=== PATIENT | male | born 1980 | race Caucasian/White ===

== ENCOUNTER → 2016-09-15 | Outpatient (CLI) | payer OTHER ==
[~2016-09-15] MED LIST: "\\\"PREP SPRAY\\\"-TIN4 OZ"; CIPRO500 MG PO; CORTEF10 MG PO; DILANTIN100 MG PO; GLUCOPHAGE XR500 M1 PO; GLUCOPHAGE500 MG PO; LEVEMIR FL100 UNIT/1 SUB-Q; NOVOLOG100 UNIT/M; OCEAN NASAL) (A44 ML NOSE; PARLODEL2.5 MG PO; PERCOCET 5-3251 EACH PO; PERIDEX15 ML PO; PRILOSEC20 M1 PO
[2016-09-15 13:18] LABS: CREATININE 0.9 mg/dL (0.6-1.3)
== END | disposition disaster alternative care site (69) ==
LOC: GLAB 12:11
PROVIDERS: Neurological Surgery
DX: D49.7 Neoplasm of unspecified behavior of endocrine glands and other parts of nervous system (principal)